=== PATIENT | male | born 1975 | race Caucasian/White ===

== ENCOUNTER 2023-07-10 07:51 | Emergency (ER) | payer OTHER, SELFPAY ==
[2023-07-10 08:17] VITALS: BP 139/87; PULSE 102; RESP 18; TEMP 36.2; O2SAT 94; BMI 35.9
--- NOTE | 2023-07-10 08:34 | CRLHL7_ITS ---
For Patients: As a result of the Century Cures Act, medical imaging exams and procedure reports are released immediately into your electronic medical record. You may view this report before your referring provider. If you have questions, please contact your health care provider. INDICATION: COUGH TECHNIQUE: Chest 2 views. COMPARISON: None. FINDINGS: Cardiovascular and mediastinum: Heart size and vasculature are normal in caliber and appearance. Lungs and pleural spaces: Lungs are clear. No sign of infiltrate. No sign of pleural effusion. No pneumothorax. Bones and soft tissues: No significant findings. IMPRESSION: No evidence of acute cardiopulmonary process. Dictated by Alan Mclaughlin MD @ 07/10/2023 9:08:01 AM (Electronically Signed)
--- NOTE | 2023-07-10 08:36 | ED_ITS ---
HPI - General Adult General Chief complaint: Cough Stated complaint: cold, cough Time Seen by Provider: 07/10/23 08:00 Source: patient Mode of arrival: ambulatory Limitations: no limitations History of Present Illness HPI narrative: 47-year-old male coming in today complaining of cough for the last 2 weeks. Cough is often times productive of phlegm. He denies fevers or chills. He does not feel short of breath. Continues to do his normal daily activities. The cough does wake him up at night. He is concerned because it is not getting better at all over the last 2 weeks. He complains of some sinus congestion and nasal discharge with a lot of green mucus. No pain across his face her teeth. He has no pain in his chest. He denies any sick contacts that he is aware. States he did have an episode of pneumonia about 20 years ago that is reminiscent of what he is feeling today. He denies any smoking or vaping. He takes no medications and no known drug allergies. Related Data Previous Rx's Medication Instructions Recorded albuterol sulfate 90 mcg/actuation 1 inh inhalation QID PRN shortness 07/10/23 aerosol inhaler of breath or wheezing #6.7 grams prednisone 20 mg tablet 20 mg PO DAILY 5 days #5 tabs 07/10/23 Allergies Allergy/AdvReac Type Severity Reaction Status Date / Time No Known Drug Allergies Allergy Verified 07/10/23 08:16 Review of Systems Status of ROS: Reports: 10 or more systems reviewed and unremarkable except as noted in History and below Exam Narrative: Exam Narrative: Overweight, well-developed patient in no acute distress. Alert and oriented. Answers questions appropriately. Mood and affect are appropriate. Thoughts are goal oriented and rational. No tangential or magical thinking noted. Patient speaks in full sentences without needing to catch his breath. Oxygen saturation does range from 92-96% HEENT: Normocephalic atraumatic. Pupils are equally round reactive to light. Extraocular muscles are intact. Conjunctivae are moist without any icterus noted. Moist mucous membranes. Posterior pharynx is normal. Neck is soft without any lymphadenopathy or thyromegaly. No masses are appreciated. Cardiovascular: Heart is regular rate and rhythm S1 and S2 are present without any murmurs. Lungs: He has very mild bilateral wheezing with the left side louder than the right. Abdomen: Soft and nontender nondistended with normal bowel sounds. Extremities: Bilateral lower extremities are without edema. Skin: Well perfused without any obvious rashes. Const: Vital Signs, click to edit/add: Vital Signs - 24 hr 07/10/23 08:17 Temperature 97.2 F L Pulse Rate [Pulse Oximeter] 102 H Respiratory Rate 18 Blood Pressure [Le ft Upper Arm] 139/87 Pulse Oximetry 94 Oxygen Delivery Me thod Room Air Course Course ED Course: Patient did receive he DuoNeb and a steroid. Chest x-ray, read by me, does not show any acute infiltrates. WBC mildly elevated at 12,000 thousand. Triple swab is negative. Vital Signs Vital signs: Initial Vital Signs Temperature 97.2 F L 07/10/23 08:17 Temperature Source Temporal Artery Scan 07/10/23 08:17 Pulse Rate 102 H 07/10/23 08:17 Respiratory Rate 18 07/10/23 08:17 Blood Pressure 139/87 07/10/23 08:17 Blood Pressure Mean 104 07/10/23 08:17 Pulse Oximetry 94 07/10/23 08:17 Oxygen Delivery Method Room Air 07/10/23 08:17 Vital Signs Temperature 97.2 F L 07/10/23 08:17 Pulse Rate 102 H 07/10/23 08:17 Respiratory Rate 18 07/10/23 08:17 Blood Pressure 139/87 07/10/23 08:17 Pulse Oximetry 94 07/10/23 08:17 Oxygen Delivery Method Room Air 07/10/23 08:17 Temperature 97.2 F L 07/10/23 08:17 Pulse Rate 102 H 07/10/23 08:17 Respiratory Rate 18 07/10/23 08:17 Blood Pressure 139/87 07/10/23 08:17 Pulse Oximetry 94 07/10/23 08:17 Oxygen Delivery Method Room Air 07/10/23 08:17 Medications Administered Medications: Discontinued Medications Generic Name Dose Route Start Last Admin Trade Name Freq PRN Reason Stop Dose Admin Albuterol/Ipratropium 1 neb 07/10/23 08:41 07/10/23 09:07 Iprat-Albut 0.5-2.5 Mg/3 Ml Neb IH 07/10/23 08:42 1 neb ONCE ONE Administration Prednisone 50 mg 07/10/23 08:41 07/10/23 09:07 Prednisone 10 Mg Tablet PO 07/10/23 08:42 50 mg ONCE ONE Administration Medical Decision Making MDM Narrative Medical decision making narrative: 47-year-old male with cough for 2 weeks, wheezing. I do think that he likely had a viral infection that resulted in reactive airways. At this time we will send him home with an albuterol inhaler to take as needed, and a 5 day course of steroid. I do not see the need for antibiotics at this time. However, should he get worse certainly recommend he return for follow-up. Lab Data Lab results reviewed: Yes I reviewed the patient's lab results Labs: Lab Results 07/10/23 07/10/23 Range/Units 08:09 08:41 WBC 12.02 H (4.50-11.00) K/uL RBC 5.01 (4.30-5.90) m/uL Hgb 14.6 (13.5-17.5) gm/dL Hct 42.8 (37.0-53.0) % MCV 85 (80-100) fL MCH 29 (26-34) pg MCHC 34 (32-36) gm/dL RDW Coeff of Sd 11.9 (11.5-15.5) % Plt Count 314 (140-440) K/uL Neut % (Auto) 80.5 H (42.0-72.0) % Lymph % (Auto) 10.3 L (20-44) % [place] % (Auto) 8.9 (0.0-11.0) % Eos % (Auto) 0.0 (0.0-7.0) % Baso % (Auto) 0.2 (0.0-3.0) % Neut # (Auto) 9.70 H (1.7-7.0) K/uL Lymph # (Auto) 1.20 (0.90-2.90) K/uL [place] # (Auto) 1.10 H (0.00-0.90) K/UL Eos # (Auto) 0.00 (0.00-0.50) K/uL Baso # (Auto) 0.00 (0.00-0.30) K/uL Abs Immat Gran (auto) 0.00 (0.00-0.30) K/uL Imm/Tot Granulo (auto) 0.1 % SARS-CoV-2 (PCR) Negative SARS-CoV-2 (Negative) Influenza Type A (PCR) Negative PCR FLU A (Negative) Influenza Type B (PCR) Negative PCR FLU B (Negative) RSV (PCR) Negative PCR RSV (Negative) Imaging Data Chest x-ray: Attestation: I have reviewed the pertinent imaging results. Radiologist's impression: Chest 2 views. COMPARISON: None. FINDINGS: Cardiovascular and mediastinum: Heart size and vasculature are normal in caliber and appearance. Lungs and pleural spaces: Lungs are clear. No sign of infiltrate. No sign of pleural effusion. No pneumothorax. Bones and soft tissues: No significant findings. IMPRESSION: No evidence of acute cardiopulmonary process. Discharge Plan Discharge Clinical Impression: Cough, Wheezing Patient Disposition: Home, Self-Care Condition: Stable Additional Instructions: You will be sent home today with an inhaler to take as needed-you should ask the pharmacist how to use this properly. You also be sent home on a 5 day course of steroids, take all steroids as prescribed. There is no evidence of infection requiring antibiotics. If you feel like you are getting worse instead of better over the next several days, you should return to the ER. Recommend you follow- up with your primary care provider in a couple of weeks. Prescriptions: New prednisone 20 mg tablet 20 mg PO DAILY 5 Days Qty: 5 0RF albuterol sulfate 90 mcg/actuation HFA aerosol inhaler 1 inh inhalation QID PRN (Reason: shortness of breath or wheezing) Qty: 6.7 0RF Follow Up/Referrals: Provider,Not a Local [Primary Care Provider] - Stand Alone Forms: [employer] Info Instructions
[2023-07-10 08:47] LABS: Basophils Percent Auto 0.2 % (0.0-3.0); Hematocrit 42.8 % (37.0-53.0); Hemoglobin* 14.6 gm/dL (13.5-17.5); Immature Granulocytes Pct Auto 0.1 %; Lymphocytes Percent Auto 10.3 % (20-44); Mean Corpuscular HGB Conc 34 gm/dL (32-36); Mean Corpuscular Hemoglobin 29 pg (26-34); Mean Corpuscular Volume 85 fL (80-100); Monocytes Percent Auto 8.9 % (0.0-11.0); Neutrophils Percent Auto 80.5 % (42.0-72.0); Platelet Count* 314 K/uL (140-440); RDW Coefficient of Variation % 11.9 % (11.5-15.5); Red Blood Count 5.01 m/uL (4.30-5.90); White Blood Count* 12.02 K/uL (4.50-11.00)
[2023-07-10 08:53] LABS: Slide Review Reflex No
[2023-07-10 09:03] LABS: PCR FLU A Negative PCR FLU A (Negative); PCR FLU B Negative PCR FLU B (Negative); PCR RSV Negative PCR RSV (Negative)
[2023-07-10] MEDS: predniSONE 10 MG TABLET 50 MG PO (09:07)
[2023-07-10] MEDS: IPRAT-ALBUT 0.5-2.5 MG/3 ML NEB 1 NEB IH (09:07)
[2023-07-10 09:08] LABS: SARS PCR* Negative SARS-CoV-2 (Negative)
--- NOTE | 2023-07-10 09:15 | ED.NURSE ---
Patient at rest with heart rate at 100 and pulse ox at 93% on room air. Went around unit at brisk pace twice and patients's heart rate went to 113 while pulse ox remained between 93-94% Tolerated well. Currently receiving nebulizer treatment with pulse at 97%
== END 2023-07-10 09:51 | disposition home or self-care (01) ==
PROVIDERS: Emergency Provider Family Medicine
DX: R05.9 Cough, unspecified (principal); R06.2 Wheezing
CPT/HCPCS: 36415; 71046; 85025; 87631; 94640; 95992; 99283; 99284; J7512